=== PATIENT | female | born 1960 | race Caucasian/White ===

== ENCOUNTER 2019-07-01 08:20 | Emergency (ER) | payer MEDICAID ==
[~2019-07-01] VITALS: Ht 152.4 cm; Wt 57.4 kg
[~2019-07-01 08:20] MED LIST: HYDR28.340 TOP; MUPI22OI2 TOP
[2019-07-01 08:22] VITALS: BP 148/68; PULSE 74; RESP 18; Ht 152.4 cm; Wt 57.4 kg
== END 2019-07-01 09:50 | disposition home or self-care (01) ==
LOC: FTE 08:20
DX: R22.0 Localized swelling, mass and lump, head (principal)
CPT/HCPCS: 99283